=== PATIENT | male | born 1985 | race Two or more races ===

== ENCOUNTER 2020-06-15 11:08 | Emergency (ER) | payer BC ==
[~2020-06-15] VITALS: Ht 177.8 cm; Wt 87.3 kg
[2020-06-15 11:17] VITALS: BP 128/76
[2020-06-15] MEDS ORDERED: TRIAMCINOLONE ACETONIDE 40 MG/ML, 1ML IM ONE (11:52)
[2020-06-15] MEDS ORDERED: TRIAMCINOLONE CRM 0.5%, 15GM TP SCH (12:18)
== END 2020-06-15 12:25 | disposition home or self-care (01) ==
LOC: ED 11:46
DX: L23.7 Allergic contact dermatitis due to plants, except food (principal)
CPT/HCPCS: 96372; 99283; J3301